=== PATIENT | female | born 1980 | race Hispanic/Latino ===

== ENCOUNTER 2023-11-25 02:08 | Emergency (ER) | payer OTHER ==
[2023-11-25] MEDS ORDERED: ONDANSETRON 4 MG/2 ML VIAL ONE ×2 (03:42→08:52)
[2023-11-25] MEDS ORDERED: MORPHINE 4 MG/ML SYR ONE ×2 (03:43→06:39)
[2023-11-25] MEDS ORDERED: NA CHLORIDE 0.9% 1,000 ML ONE (03:43)
[2023-11-25] MEDS ORDERED: FAMOTIDINE 20 MG/2 ML VIAL IV ONE (03:43)
[2023-11-25 03:46] LABS: Absolute Lymphocytes (CBC) 1.6 K/uL (0.7-4.9); Absolute Monocytes 0.4 K/uL (0.1-1.3); Basophils % 0.4 % (0-1.3); Eosinophils % 0.5 % (0-4.4); Hematocrit 41.4 % (36.0-45.0); Hemoglobin 13.7 g/dL (12.0-15.0); Lymphocytes % 19.9 % (15.3-44.8); MCH 29.2 pg (27.0-35.0); MCHC 33.1 g/dL (32.0-36.0); MCV 88.4 fL (80-100); Monocytes % 4.5 % (3.3-12.3); Neutrophils % 74.7 % (41.7-73.7); Platelets 221 thou/uL (152-406); RBC Red Blood Cell Count 4.69 M/uL (3.86-4.86); Red Cell Distribution Width 15.6 % (12.1-15.2)
[2023-11-25 03:55] LABS: Specific Gravity 1.017 (1.005-1.030); Sqamous Epithelial <5 /HPF (None Seen); Urine Bacteria None Seen /HPF (<20); Urine Bilirubin NEGATIVE (Negative); Urine Blood 1+ (Negative); Urine Clarity Turbid (Clear); Urine Color Colorless (Yellow); Urine Culture Reflex Order NOT NEEDED; Urine Glucose 1+ (Negative); Urine Ketones NEGATIVE (Negative); Urine Microscopic Reflex YN ORDER UMIC; Urine Mucus Slight /HPF (None Seen); Urine Nitrite NEGATIVE (Negative); Urine Protein NEGATIVE (Negative); Urine RBC <5 /HPF (None Seen); Urine Urobilinogen Normal (Normal); Urine WBC <5 /HPF (<5)
[2023-11-25 04:02] LABS: Albumin 3.8 g/dL (3.4-5.0); Albumin/Globulin Ratio 0.9 (1.1-1.8); Anion Gap 9.7 mEq/L (5.0-15.0); Bilirubin Total 0.4 mg/dL (0.2-1.0); Globulin 4.1 g/dL (2.3-3.5); Potassium 3.7 mEq/L (3.5-5.1); Protein, Total 7.9 g/dL (6.4-8.2)
[2023-11-25] MEDS ORDERED: LIDOCAINE VISCOUS 2% 10ML ORAL SOLN ONE (04:54)
[2023-11-25] MEDS ORDERED: MAGNES/ALUMIN/SIMET 30ML UCUP ONE (04:54)
--- NOTE | 2023-11-25 06:15 | RAD REPORT ---
EXAM DESCRIPTION: CTAbdomen Pelvis W Contrast - 11/25/2023 4:25 am CLINICAL HISTORY: ABD PAIN COMPARISON: <Comparisons> TECHNIQUE: CT of the abdomen and pelvis was performed with IV contrast. All CT scans are performed using dose optimization technique as appropriate and may include automated exposure control or mA/KV adjustment according to patient size. FINDINGS: Lower chest: No acute abnormality. Liver: Periportal edema. Mild intrahepatic biliary duct dilatation. No focal mass . Biliary: Gallbladder wall thickening. Common bile duct is dilated up to 8 millimeters. Stomach: No significant focal abnormality. Duodenum: No significant focal abnormality. Pancreas: No significant abnormality. Spleen: No significant abnormality. Adrenal: No suspicious lesions. Kidney/ureter: No hydronephrosis. No renal calculi. Retroperitoneum: No retroperitoneal adenopathy. Vascular: No aneurysm. Bowel: Normal appendix. No bowel obstruction.. Peritoneum: No ascites or free air. Bladder: Grossly unremarkable. Reproductive: IUD. Bones: No acute fracture. Mild disc height loss L5-S1. Other: n/a IMPRESSION: Gallbladder wall thickening and biliary duct dilatation. This is suspicious for choledoc holithiasis. Gallbladder wall thickening could also indicate acute cholecystitis as well. MRCP could further evaluate the common bile duct.
[2023-11-25] MEDS ORDERED: PIPERACIL/TAZO 3.375 GM VIAL IV ONE (06:26)
[2023-11-25] MEDS ORDERED: NA CHLORIDE 0.9% 100 ML ONE (06:26)
--- NOTE | 2023-11-25 06:28 | ER ---
Nurse's Notes [facility] Name: Jovanna Orta Age: 43 yrs Sex: Female : 1980 Arrival Date: 11/25/2023 Time: 02:08 Bed 7 Private MD: Diagnosis: Acute cholecystitis;Choledocholithiasis Presentation: 11/24 03:16 Chief complaint: Patient states: epigastric pain that started around 2100. States she cp4 has taken pepcid with no relief. Coronavirus screen: Client denies travel out of the [place] in the last 14 days. At this time, the client does not indicate any symptoms associated with coronavirus-19. Ebola Screen: Patient negative for fever greater than or equal to 101.5 degrees Fahrenheit, and additional compatible Ebola Virus Disease symptoms Patient denies exposure to infectious person. Patient denies travel to an Ebola-affected area in the 21 days before illness onset. No symptoms or risks identified at this time. Initial Sepsis Screen: Does the patient meet any 2 criteria? No. Patient's initial sepsis screen is negative. Does the patient have a suspected source of infection? No. Patient's initial sepsis screen is negative. Risk Assessment: Do you want to hurt yourself or someone else? Patient reports no desire to harm self or others. Onset of symptoms was November 25, 2023. 03:16 Method Of Arrival: Ambulatory cp4 03:16 Acuity: VERONICA 3 cp4 Triage Assessment: 03:18 General: Appears distressed, uncomfortable, Behavior is calm, cooperative, appropriate cp4 for age. Pain: Complains of pain in abdomen Pain currently is 9 out of 10 on a pain scale. EENT: No signs and/or symptoms were reported regarding the EENT system. Neuro: Level of Consciousness is awake, alert, obeys commands, Oriented to person, place, time, situation. Cardiovascular: No deficits noted. Respiratory: Airway is patent Respiratory effort is even, unlabored. GI: Abdomen is round non-distended, Bowel sounds present X 4 quads. Abd is soft and non tender X 4 quads. : No signs and/or symptoms were reported regarding the genitourinary system. Derm: No signs and/or symptoms reported regarding the dermatologic system. Musculoskeletal: No signs and/or symptoms reported regarding the musculoskeletal system. 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 - Infectious Disease History:: Denies. - Social history:: Smoking status: Patient denies any tobacco usage or history of. Screenin:[address] [facility] ED Fall Risk Assessment (Adult) History of falling in the last 3 months, cp4 including since admission No falls in past 3 months (0 pts) Confusion or Disorientation No (0 pts) Intoxicated or Sedated No (0 pts) Impaired Gait No (0 pts) Mobility Assist Device Used No (0 pt) Altered Elimination No (0 pt) Score/Fall Risk Level 0 - 2 = Low Risk Oriented to surroundings, Maintained a safe environment, Assessed \T\ reinforced patient's understanding of fall precautions, Hourly rounding (assess needs \T\ fall precautionary measures) done. Abuse screen: Denies threats or abuse. Nutritional screening: No deficits noted. Tuberculosis screening: No symptoms or risk factors identified. Assessment: 03:20 Reassessment: No changes from previously documented assessment. cp4 04:30 Reassessment: No changes from previously documented assessment. Patient and/or family cp4 updated on plan of care and expected duration. Pain level reassessed. Patient is alert, oriented x 3, equal unlabored respirations, skin warm/dry/pink. 09:10 Reassessment: Patient appears in no apparent distress at this time. No changes from ld1 previously documented assessment. Patient and/or family updated on plan of care and expected duration. Pain level reassessed. Vital Signs: 03:16 BP 124 / 104; Pulse 63; Resp 18; Temp 98; Pulse Ox 100% ; Pain 9/10; cp4 04:00 BP 127 / 78; Pulse 55; Resp 18; Pulse Ox 99% ; cp4 05:00 BP 140 / 54; Pulse 65; Resp 18; Pulse Ox 99% ; cp4 06:00 BP 126 / 67; Pulse 71; Resp 18; Pulse Ox 99% ; cp4 03:16 Pain Scale: Adult cp4 ED Course: 02:10 Patient arrived in ED. [id number] 02:37 Felix Nichols MD is Attending Physician. ec2 03:17 Triage completed. cp4 03:18 Arm band placed on right wrist. Patient placed in waiting room. cp4 03:20 Bed in low position. Call light in reach. Side rails up X 1. cp4 03:41 Ju Sullivan is Primary Nurse. cp4 03:49 No provider procedures requiring assistance completed. Initial lab(s) drawn, by co, cp4 sent to lab. Urine collected: clean catch specimen, clear. Inserted saline lock: 22 gauge in right antecubital area, using aseptic technique. Blood collected. Flushed with 10 mL NS. 04:26 CT Abd/Pelvis - IV Contrast Only In Process Unspecified. EDMS 06:35 initiated a transfer with Tonya Tripp from the [facility]. eb 06:59 connected the hospitalist [place] construction supervisor for [facility] with for patient eb transfer consultation. 07:00 administrative approval given by Virgie Buck Rn/ patient has been accepted to [facility] room 915/ Dr. Anya Ramey has accepted the patient in transfer/ report to be called to [phone]. 09:10 Pulse ox on. NIBP on. ld1 09:10 Patient transferred, IV remains in place. ld1 Administered Medications: 03:48 Drug: NS 0.9% IV 1000 ml IV at 1 bolus Per protocol; 1000 mL bolus Route: IV; Rate: 1 cp4 bolus; Site: right antecubital; 04:56 Follow up: Response: No adverse reaction; IV Status: Completed infusion cp4 03:48 Drug: Famotidine IVP 20 mg IVP once; dilute with 10 mL 0.9% NaCl; give over 2 minutes cp4 Route: IVP; Site: right antecubital; 04:55 Follow up: Response: No adverse reaction cp4 03:49 Drug: Ondansetron IVP 4 mg IVP once; over 2 minutes Route: IVP; Site: right antecubital;cp4 04:56 Follow up: Response: No adverse reaction; Nausea is decreased cp4 03:49 Drug: morphine IVP or IV 4 mg IVP once over 4 mins Route: IVP; Infused Over: 4 mins; cp4 Site: right antecubital; 04:56 Follow up: Response: No adverse reaction; Pain is decreased cp4 04:55 Drug: Alum-Mag Hydroxide-Simeth PO Suspension (200 mg-200 mg-20 mg/5 mL) 30 ml PO once cp4 Route: PO; 06:29 Follow up: Response: No adverse reaction cp4 04:55 Drug: Viscous Lidocaine Mucous Membrane Liquid (4 %) 10 ml Mucous Membrane once Route: cp4 Mucous Membrane; 06:29 Follow up: Response: No adverse reaction cp4 06:27 Drug: Piperacillin-Tazobactam IVPB 3.375 grams IVPB once over 60 mins; (mix in NS 100 jh8 mL) Route: IVPB; Infused Over: 60 mins; Site: left antecubital; 07:30 Follow up: Response: No adverse reaction; IV Status: Completed infusion ld1 06:43 Drug: morphine IVP or IV 4 mg IVP once over 4 mins Route: IVP; Infused Over: 4 mins; jh8 Site: right antecubital; 08:57 Drug: fentaNYL (PF) IVP 100 mcg IVP once Route: IVP; Site: right antecubital; ld1 08:57 Drug: Ondansetron IVP 4 mg IVP once; over 2 minutes Route: IVP; Site: right antecubital;ld1 Medication: 03:20 VIS not applicable for this client. cp4 Outcome: 06:27 ER care complete, transfer ordered by . ec2 09:10 Transferred by ground EMS ld1 09:10 Condition: stable 09:10 Instructed on the need for transfer, 09:11 Patient left the ED. ld1 Signatures: Dispatcher [employer] Valerie Wagner Lauren, TAI RN ld1 Areli Syed jj6 Felix Nichols MD MD ec2 Ju Sullivan cp4 Azam Whitlock RN RN jh8
--- NOTE | 2023-11-25 06:28 | EDPHYS ---
Physician Documentation [facility] Name: Jovanna Orta Age: 43 yrs Sex: Female : 1980 Arrival Date: 11/25/2023 Time: 02:08 Bed 7 Private MD: ED Physician Felix Nichols HPI: 11/24 03:27 This 43 yrs old Female presents to ER via Ambulatory with complaints of ec2 Epigastric Pain, Abdominal Pain. 03:27 Patient arrives today for evaluation of upper abdominal pain. Patient reports abdominal ec2 pain started approximately 6 hours prior to arrival. Reports associated nausea, vomiting. No urinary complaints, no diarrheal issues. Patient reports otherwise no previous abdominal surgeries. LMP unsure as she has an IUD in place.. 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 - Infectious Disease History:: Denies. - Social history:: Smoking status: Patient denies any tobacco usage or history of. ROS: 03:27 Constitutional: as per hpi ec2 Exam: 03:27 Constitutional: GEN: NAD Head: atraumatic Eyes: EOMI Ears: External ears are ec2 normal. CV: regular rate LUNGS: no respiratory distress ABD: non-distended, soft, tender in the epigastrium, no guarding, not rigid. SKIN: no evidence of rashes MSK: no evidence of trauma Vital Signs: 03:16 BP 124 / 104; Pulse 63; Resp 18; Temp 98; Pulse Ox 100% ; Pain 9/10; cp4 04:00 BP 127 / 78; Pulse 55; Resp 18; Pulse Ox 99% ; cp4 05:00 BP 140 / 54; Pulse 65; Resp 18; Pulse Ox 99% ; cp4 06:00 BP 126 / 67; Pulse 71; Resp 18; Pulse Ox 99% ; cp4 03:16 Pain Scale: Adult cp4 MDM: 03:21 Patient medically screened. ec2 03:27 Data reviewed: vital signs. ED course: Patient arrives today for evaluation of ec2 abdominal pain for examination remarkable for abdominal TTP. Will obtain lab work, urine studies, CT imaging. Differential includes process such as appendicitis, diverticulitis, pancreatitis. 04:04 ED course: Metabolic profile reassuring, urine is noninfectious appearing. Lipase ec2 within normal ranges, testing negative. CBC reassuring . 06:26 ED course: CT imaging shows concern for choledocholithiasis with CBD dilation to 8 mm ec2 in size along with cholecystitis. Will give the patient Zosyn, transfer for MRCP as well as GI consultation.. 06:56 ED course: I discussed case with hospitalist over at [facility] who ec2 agrees accept the patient for transfer. Patient ultimately need transfer for MRCP as we are unable to perform MRI on the weekend. Patient also needs GI evaluation as well.. [id number] 03:26 Order name: CBC with Diff; Complete Time: 03:54 ec2 18 03:26 Order name: CMP; Complete Time: 04:04 ec2 18 03:26 Order name: Lipase; Complete Time: 04:04 ec2 18 03:26 Order name: Test, Urine; Complete Time: 04:04 ec2 18 03:26 Order name: Urinalysis w/ reflexes; Complete Time: 04:04 ec2 08/18 03:26 Order name: CT Abd/Pelvis - IV Contrast Only; Complete Time: 06:18 ec2 18 03:26 Order name: IV Saline Lock; Complete Time: 03:41 ec2 18 03:26 Order name: Labs collected and sent; Complete Time: 03:41 ec2 Administered Medications: 03:48 Drug: NS 0.9% IV 1000 ml IV at 1 bolus Per protocol; 1000 mL bolus Route: IV; Rate: 1 cp4 bolus; Site: right antecubital; 04:56 Follow up: Response: No adverse reaction; IV Status: Completed infusion cp4 03:48 Drug: Famotidine IVP 20 mg IVP once; dilute with 10 mL 0.9% NaCl; give over 2 minutes cp4 Route: IVP; Site: right antecubital; 04:55 Follow up: Response: No adverse reaction cp4 03:49 Drug: Ondansetron IVP 4 mg IVP once; over 2 minutes Route: IVP; Site: right antecubital;cp4 04:56 Follow up: Response: No adverse reaction; Nausea is decreased cp4 03:49 Drug: morphine IVP or IV 4 mg IVP once over 4 mins Route: IVP; Infused Over: 4 mins; cp4 Site: right antecubital; 04:56 Follow up: Response: No adverse reaction; Pain is decreased cp4 04:55 Drug: Alum-Mag Hydroxide-Simeth PO Suspension (200 mg-200 mg-20 mg/5 mL) 30 ml PO once cp4 Route: PO; 06:29 Follow up: Response: No adverse reaction cp4 04:55 Drug: Viscous Lidocaine Mucous Membrane Liquid (4 %) 10 ml Mucous Membrane once Route: cp4 Mucous Membrane; 06:29 Follow up: Response: No adverse reaction cp4 06:27 Drug: Piperacillin-Tazobactam IVPB 3.375 grams IVPB once over 60 mins; (mix in NS 100 jh8 mL) Route: IVPB; Infused Over: 60 mins; Site: left antecubital; 07:30 Follow up: Response: No adverse reaction; IV Status: Completed infusion ld1 06:43 Drug: morphine IVP or IV 4 mg IVP once over 4 mins Route: IVP; Infused Over: 4 mins; jh8 Site: right antecubital; 08:57 Drug: fentaNYL (PF) IVP 100 mcg IVP once Route: IVP; Site: right antecubital; ld1 08:57 Drug: Ondansetron IVP 4 mg IVP once; over 2 minutes Route: IVP; Site: right antecubital;ld1 Disposition Summary: 11/25/23 06:27 Transfer Ordered Notes: Transfer Location: Other Acute Care Facility ec2 Reason: Higher level of care ec2 Condition: Stable ec2 Problem: new ec2 Symptoms: have improved ec2 Accepting Physician: transferring doc(11/25/23 09:11) ld1 Diagnosis - Acute cholecystitis ec2 - Choledocholithiasis ec2 Forms: - Medication Reconciliation Form ec2 - SBAR form ec2 Signatures: Dispatcher [employer] Nilson Antony MD MD cha Sims, Lauren, RN RN ld1 Felix Nichols MD MD ec2 Ju Sullivan cp4 Azam Whitlock RN RN jh8 Corrections: (The following items were deleted from the chart) 03:27 03:27 CBC+H.LAB.BRZ ordered. EDMS EDMS 03:27 03:27 COMPREHENSIVE METABOLIC PANEL+C.LAB.BRZ ordered. EDMS EDMS 03:27 03:27 LIPASE+C.LAB.BRZ ordered. EDMS EDMS 03:27 03:27 Test, Urine+UC.LAB.BRZ ordered. EDMS EDMS 03:27 03:27 Urinalysis+U.LAB.BRZ ordered. EDMS EDMS 03:27 03:27 Abdomen Pelvis W Con+CT.RAD.BRZ ordered. EDMS EDMS 09:11 06:27 transferring doc ec2 ld1
[2023-11-25] MEDS ORDERED: FENTANYL CITR 100 MCG/2 ML ONE (08:52)
[2023-11-25 09:37] VITALS: TEMP 98
[2023-11-25 09:38] VITALS: O2SAT 99
[2023-11-25 09:41] VITALS: BP 126/67
== END 2023-11-25 09:11 ==
LOC: ER 02:08
DX: K80.42 Calculus of bile duct with acute cholecystitis without obstruction (principal)
CPT/HCPCS: 96365; 96361; 85025; 81001; 36415; 81025; 83690; 80053; 74177; 96375; 99285; Q9967; J2543; J3010; J2405 ×2; J7030